=== PATIENT | male | born 1960 | race Caucasian/White ===

== ENCOUNTER 2016-07-21 16:28 | Emergency (ER) | payer SELFPAY ==
[~2016-07-21] VITALS: Ht 188 cm; Wt 109.3 kg
[2016-07-21 18:35] VITALS: BP 146/92
== END 2016-07-21 18:35 | disposition home or self-care (01) ==
LOC: ED 16:28
DX: S83.92XA Sprain of unspecified site of left knee, initial encounter (principal); S39.012A Strain of muscle, fascia and tendon of lower back, initial encounter; S80.812A Abrasion, left lower leg, initial encounter; E66.9 Obesity, unspecified; V23.4XXA Motorcycle driver injured in collision with car, pick-up truck or van in traffic accident, initial encounter; Y93.55 Activity, bike riding; Y99.8 Other external cause status; Y92.89 Other specified places as the place of occurrence of the external cause
CPT/HCPCS: 72072; J1170; J1885; Q0162